=== PATIENT | male | born 1955 | race Caucasian/White ===

== ENCOUNTER 2025-02-07 09:53 | Outpatient (AMB) | payer MEDICARE, SELFPAY ==
--- NOTE | 2025-02-07 10:00 | MHC.PC.OV ---
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 [facility] Medical records have been requested and have not received. Yoga Instructor Required: No Antisubmarine Weapons Officer: Present Accompanied by: Brother Allergies Penicillins Allergy (Intermediate, Verified 02/07/25 10:10) Hives Medication List - Last Reconciled 02/07/25 by Wm Newell MD ammonium lactate 12% 1 appl topical DAILY collagenase clostridium histo. (Santyl) 1 appl topical DAILY furosemide (Lasix) 20 mg PO DAILY omeprazole 20 mg PO DAILY Tobacco use date assessed: 02/07/25 Fall risk assessment: No Falls in past year Last assessed Fall Risk: 02/07/25 Dental Screening Dental Screen Date: 02/07/25 Did you have a dental visit in the last 12 months?: Yes Did you have a dental problem in the last 6 months where you did not have access to dental care?: No Was dental information given to patient?: Patient has dentist HPI HPI Comments History of Present Illness Details The patient is a 70-year-old male with PMH of wound on left lower extremity, presenting for a new patient visit to establish primary care. He has not seen a physician since 2019 or 2020. His brother, Hermelindo, accompanies him and is actively involved in his medical care, including medication management. The patient has a history of a large ulcerated wound on his left leg, for which he has been receiving treatment at a wound care center. The wound is now mostly healed, and he wears compression socks. He reports persistent swelling in his ankles, though his legs are not as bad, for which he takes furosemide 20 mg daily. The patient has a long-standing history of acid reflux, which bothers him daily with symptoms of gas and frequent burping. He takes omeprazole 20 mg daily, which was prescribed in 2020. He has a history of varicose veins and had one vein repaired in the past. His blood pressure was noted to be elevated at 140 systolic during the visit. He reports taking aspirin and Tylenol for unspecified pain. The patient has never smoked. [facility] Surgical History (Updated 02/07/25 @ 10:17 by THEA Meehan) History of tonsillectomy History of hernia surgery Social History (Updated 02/07/25 @ 10:01 by THEA Meehan) Housing: House Alcohol intake: never Patient Tobacco Use Status: Never used Tobacco e-Cigarette/Vaping Use: Never Used Second Hand Smoke Exposure: No service: No Current occupational status: retired Cognitive needs: No Hearing needs: No Vision needs: Yes (Glass) Questionnaire PHQ-9 Over the last 2 weeks, how often have you been bothered by any of the following problems? 1. Little interest or pleasure in doing things: not at all 2. Feeling down, depressed, or hopeless: not at all 3. Trouble falling or staying asleep, or sleeping too much: not at all 4. Feeling tired or having little energy: not at all 5. Poor appetite or overeating: not at all 6. Feeling bad about yourself - or that you are a failure or have let yourself or your family down: not at all 7. Trouble concentrating on things, such as reading the newspaper or watching television: not at all 8. Moving or speaking so slowly that other people could have noticed. Or the opposite - being so fidgety or restless that you have been moving around a lot more than usual: not at all 9. Thoughts that you would be better off or of hurting yourself in some way: not at all Total score: 0 Depression Screening Interpretation: Negative Depression Screening Done: Yes Source: Developed by Drs. Ramin Haney, Kavita Delgadillo, Chriss Santos and colleagues, with an educational kyaw from [employer]. Thrive Questionnaire Date Thrive assessed: 02/05/25 I am a: Patient What is your living situation today?: I have a steady place to live Within the past 12 months, did the food you bought not last and you didn't have the money to get more?: Never true Within the past 12 months, did you worry whether your food would run out before you got money to buy more?: Never true Do you have trouble paying for medicines?: No Do you have trouble getting transportation to medical appointments?: No Do you have trouble paying your heating and electricity bill?: No Do you have trouble taking care of your child, family member or friend?: No Do you have trouble with day-to-day activities such as bathing, preparing meals, shopping, managing finances, etc.?: I choose not to answer this question Are you currently unemployed and looking for a job?: No Are you interested in more education?: No Please select the resources that you would like help with: None Currently or been in a relationship where the following occur: No concerns reported THRIVE Score: 0 AUDIT C Alcohol Use Questionnaire (AUDIT-C) 1. How often do you have a drink containing alcohol?: Never 3. How often do you have six or more drinks on one occasion?: Never Total Score: 0 JENNIFER-7 AMB Questionnaire JENNIFER-7 Date JENNIFER - 7 assessed: 02/07/25 Feeling nervous, anxious, or on edge: 0 = Not at all Not being able to stop or control worryin = Not at all Worrying too much about different things: 0 = Not at all Trouble relaxin = Not at all Being so restless that it is hard to sit still: 0 = Not at all Becoming easily annoyed or irritable: 1 = Several days Feeling afraid as if something awful might happen: 0 = Not at all Total JENNIFER-7 score (0-4 normal; 5-9 mild; 10-14 moderate; 15-21 severe): 1 Source: Developed by Drs. Ramin Haney, Kavita Delgadillo, Chriss Santos and colleagues, with an educational kyaw from [employer]. Review of Systems Const Details: Positives besides what was mentioned in HPI are in BOLD Constitutional: No Weight Change, No Fever, No Chills, No Night Sweats, No Fatigue, No Malaise ENT/Mouth: No Hearing Changes, No Ear Pain, No Nasal Congestion, No Sinus Pain, No Hoarseness, No sore throat, No Rhinorrhea, No Swallowing Difficulty Eyes: No Eye Pain, No Swelling, No Redness, No Foreign Body, No Discharge, No Vision Changes Cardiovascular: No Chest Pain, No SOB, No PND, No Dyspnea on Exertion, No Orthopnea, No Claudication, No Edema, No Palpitations Respiratory: No Cough, No Sputum, No Wheezing, No Smoke Exposure, No Dyspnea Gastrointestinal: No Nausea, No Vomiting, No Diarrhea, No Constipation, No Pain, No Heartburn, No Anorexia, No Dysphagia, No Hematochezia, No Melena, No Flatulence, No Jaundice Genitourinary: No Dysmenorrhea, No DUB, No Dyspareunia, No Dysuria, No Urinary Frequency, No Hematuria, No Urinary Incontinence, No Urgency, No Flank Pain, No Urinary Flow Changes, No Hesitancy Musculoskeletal: No Arthralgias, No Myalgias, No Joint Swelling, No Joint Stiffness, No Back Pain, No Neck Pain, No Injury History Skin: No Skin Lesions, No Pruritis, No Hair Changes, No Breast/Skin Changes, No Nipple Discharge Neuro: No Weakness, No Numbness, No Paresthesias, No Loss of Consciousness, No Syncope, No Dizziness, No Headache, No Coordination Changes, No Recent Falls Psych: No Anxiety/Panic, No Depression, No Insomnia, No Personality Changes, No Delusions, No Rumination, No SI/HI/AH/VH, No Social Issues, No Memory Changes, No Violence/Abuse Hx., No Eating Concerns Heme/Lymph: No Bruising, No Bleeding, No Transfusions History, No Lymphadenopathy Endocrine: No Polyuria, No Polydipsia, No Temperature Intolerance Physical exam (Primary Care) Vital Signs: Last Vital Signs Temp 96.9 F 02/07/25 10:02 Pulse 86 02/07/25 10:02 BP 140/66 H 02/07/25 10:02 Pulse Ox 96 02/07/25 10:02 Oxygen Delivery Method Room Air 02/07/25 10:02 BMI result Body Mass Index 24.4 Tobacco/Smoking Status: Tobacco use Status Tobacco use date assessed 02/07/25 02/07/25 10:19 Patient Tobacco Use Status Never used Tobacco 02/07/25 10:19 e-Cigarette/Vaping Use Never Used 02/07/25 10:19 PHQ-9: PHQ-9 Score PHQ-9: Total score 0 02/07/25 10:32 Depression Screening Interpretation: Negative Thrive Assessment: Date of Thrive Assessment Date Thrive assessed 02/05/25 02/07/25 10:19 Currently or been in a relationship where the following occur: No concerns reported Const Other: Pertinent findings are in BOLD GENERAL APPEARANCE NAD, activity normal for age, well developed/ well nourished, no cyanosis, pallor, or diaphoresis. EYES lids/conjunctiva normal. EARS/NOSE/THROAT Mucous membranes moist, nares normal, lips/teeth normal uvula midline without oral pharyngeal erythema, exudate or swelling TMs normal bilaterally. No lymphangitis/lymphedema. HEAD/NECK normocephalic atraumatic, no facial trauma, neck is supple. RESPIRATORY respiratory effort normal, speaks in full sentences, no tripod position, no accessory muscle use. Lungs clear to auscultation without rhonchi, wheezes, rales CARDIAC Regular rate and rhythm, no edema. ABDOMINAL Soft, ND/NT. No evidence of fluid wave. No pulsatile masses on exam, rebound tenderness, Kothari sign or pain over Mcburney's point. MUSCLES/EXTREMITIES No abnormal range of motion, no swelling. SKIN Warm, pink and dry. No rashes, dermatoses, petechiae or lesions. Left lower extremity wrapped in gauze. NEUROLOGICAL Speech is clear and appropriate. Normal level of consciousness. Gait and coordination are normal. 5/5 strength in all extremities. PSYCH Normal mood and affect. Judgement/competence is appropriate Immunizations pneumoc 20-payton conj-dip cr(PF) 0.5 mL IM syringe Performing Provider: Wm Newell MD Performing Location: [facility] [place] [facility] Administered by: Lou Servin CMA on 02/07/25 10:56 Dose Route Admin Location Dispensed Lot Number Expiration Date FORMERLY NAMED [facility] Health Counselor 0.5 mL IM Right Deltoid 0.5 mL [id number] 11/29/26 [employer] Total Dispensed Waste 0.5 mL 0 % VIS Given Date VIS Provided VIS Publication Date 02/07/25 Single Vaccine 24 Eligibility Eligibility Date Funding Source Not [facility] Eligible 02/07/25 Private Boostrix Tdap 2.5 Lf unit-8 mcg-5 Lf/0.5 mL intramuscular syringe Performing Provider: Wm Newell MD Performing Location: [facility] [place] [facility] Administered by: Lou Servin CMA on 02/07/25 10:56 Dose Route Admin Location Dispensed Lot Number Expiration Date FORMERLY NAMED [facility] Health Counselor 0.5 mL IM Right Deltoid 0.5 mL [id number] 06/25/27 54386-775-16 Dez[employer] Total Dispensed Waste 0.5 mL 0 % VIS Given Date VIS Provided VIS Publication Date 02/07/25 Single Vaccine 20 Eligibility Eligibility Date Funding Source Not [facility] Eligible 02/07/25 Private Coding Level of Care Code New Pt Level 4 (57077) New Pt Prev Care >65yr (87875) Diagnoses Healthcare maintenance Z00.00 Gastroesophageal reflux disease, unspecified whether esophagitis present K21.9 Esophagitis presence: esophagitis presence not specified Ulcer of left lower extremity, unspecified ulcer stage L97.929 Laterality: left Non-pressure ulcer stage: unspecified non-pressure ulcer stage Primary hypertension I10 Hypertension type: primary hypertension Peripheral edema R60.9 Generalized pain R52 Time Spent (min) 60 Assessment & Plan Assessment & Plan (1) Healthcare maintenance: Code(s): Z00.00 - Encounter for general adult medical examination without abnormal findings Category: Medical Plan: CBC, CMP, Lipid panel, A1C, TSH w T4, vit D. Shingles 2 doses when >50 yo COVID: two doses. Completed in the past. Pneumococcal: >50 yo. 18-49 with CKD, lung disease, weakened immune system, Heart disease, DM, cochlear implant. Flu vaccine: Done recently. Tdap: every 10 years. Ordered today. Colonoscopy: 45-75. Cologuard. AAA: 65 -75. Never smoked. CT lun - 80. Never smoked. PSA: 50 -70 every two years. Ordered. HIV: Ordered. HCV: Ordered. (2) GERD (gastroesophageal reflux disease): Code(s): K21.9 - Gastro-esophageal reflux disease without esophagitis Category: Medical Qualifiers: Esophagitis presence: esophagitis presence not specified Qualified Code(s): K21.9 - Gastro-esophageal reflux disease without esophagitis Plan: - The patient has a long-standing history of symptomatic acid reflux despite taking omeprazole 20 mg. - Plan is to increase omeprazole to 40 mg once daily, taken in the morning one hour before the first meal. - A referral to Gastroenterology will be placed for further evaluation, including a possible endoscopy, due to the chronic nature of his symptoms. - The patient was advised to try eliminating dairy products to assess for improvement in symptoms. - Advised to avoid aspirin and ibuprofen due to risk of exacerbating reflux. (3) Leg ulcer: Code(s): L97.909 - Non-pressure chronic ulcer of unspecified part of unspecified lower leg with unspecified severity Category: Medical Qualifiers: Laterality: left Non-pressure ulcer stage: unspecified non-pressure ulcer stage Qualified Code(s): L97.929 - Non-pressure chronic ulcer of unspecified part of left lower leg with unspecified severity Plan: - The patient is actively being followed by a wound care center for a left leg ulcer that is now mostly healed. - I was not able to check his wound as it was wrapped in gauze. - Will continue care with the wound center. (4) HTN (hypertension): Code(s): I10 - Essential (primary) hypertension Category: Medical Qualifiers: Hypertension type: primary hypertension Qualified Code(s): I10 - Essential (primary) hypertension Plan: - Blood pressure was elevated at 140 systolic in the office. - Will initiate amlodipine 5 mg daily to be taken at night. (5) Peripheral edema: Code(s): R60.9 - Edema, unspecified Category: Medical Plan: - Patient has persistent ankle swelling. - Will continue furosemide 20 mg, with instruction to take it when swelling is pronounced rather than on a strict daily schedule. (6) Generalized pain: Code(s): R52 - Pain, unspecified Category: Medical Plan: - The patient takes aspirin for unspecified pain. - Recommended discontinuing aspirin due to bleeding risk and acid reflux. - Advised to use Tylenol for pain. Orders: Orders Complete Blood Count no Diff Today Z00.00 - Encounter for general adult medical examination without abnormal findings TDaP Immunization Today Z23 - Encounter for immunization Vitamin D 25-OH Total Today Z00.00 - Encounter for general adult medical examination without abnormal findings Comprehensive Met. Panel Today Z00.00 - Encounter for general adult medical examination without abnormal findings Hemoglobin A1c Today Z00.00 - Encounter for general adult medical examination without abnormal findings Lipid Panel Today Z00.00 - Encounter for general adult medical examination without abnormal findings TSH reflex Free T4 Today Z00.00 - Encounter for general adult medical examination without abnormal findings HIV Ab/Ag Today Z00.00 - Encounter for general adult medical examination without abnormal findings Hepatitis C Antibody Reflex Today Z00.00 - Encounter for general adult medical examination without abnormal findings Prostate Specific Antigen Today Z00.00 - Encounter for general adult medical examination without abnormal findings Pneumococcal 20 Immunization Today Z23 - Encounter for immunization Referrals Gastroenterology Referral K21.9 - Gastro-esophageal reflux disease without esophagitis Cologuard Test Z12.11 - Encounter for screening for malignant neoplasm of colon, Z12.12 - Encounter for screening for malignant neoplasm of rectum Medications: New furosemide (Lasix) 20 mg PO DAILY 90 tabs 3RF amlodipine 5 mg PO DAILY 60 tabs 3RF omeprazole 20 mg PO DAILY 30 tabs 3RF omeprazole 40 mg (2 x 20 mg) PO DAILY 30 tabs 3RF acetaminophen (Tylenol) 325 mg PO QID PRN 60 tabs 3RF pain
[2025-02-07 10:02] VITALS: BP 140/66; PULSE 86; TEMP 36.1; O2SAT 96; BMI 24.4
--- OUTSIDE RECORDS SUMMARY | 2025-02-07 11:21 | XMS_ITS | Clinical Summary ---
Author Organization [facility] Address [address] [place] [phone] Phone Care Team Providers Care Oyster Buyer Name Role Phone Physician, Pcp Unknown Primary Care Provider Adrienne vailable Allergies Active Allergy Reactions Criticality Noted Date Comments Penicillins Rash 09/27/2013 Medications mupirocin (BACTROBAN) 2 % ointment Apply to each wound twice daily for 5-days. 22 g 5 Active furosemide (LASIX) 20 mg tablet Take 1 tablet (20 mg total) by mouth 1 (one) time each day. 1 Active omeprazole (PriLOSEC) [address] capsule Take 1 capsule (20 mg total) by mouth 1 (one) time each day. 1 Active loratadine (CLARITIN) 10 mg tablet Take 1 tablet (10 mg total) by mouth 1 (one) time each day. 1 Active horse chestnut seed extract 250 mg capsule Take 250 mg by mouth 1 (one) time each day. Active horse chestnut 300 mg capsule Take 300 mg by mouth 1 (one) time each day. Active ammonium lactate (LAC-HYDRIN) 12 % lotionIndicatio ns:Lymphedema Apply topically if needed for dry skin. 400 g 2 5 03/06/20 25 Active Active Problems Problem Noted Date Diagnosed Date Chronic venous hypertension (idiopathic) with other complications of right lower extremity 12/27/2024 Lymphedema 12/13/2024 Chronic venous hypertension (idiopathic) with ulcer of left lower extremity (CODE) (CMS/[facility] V24, CMS/[facility] V28) 11/08/2024 Non-pressure chronic ulcer o f other part of 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 (CMS/HCC V24, CMS/HCC V28) 11/08/2024 Encounters Date Type Department Care Team Description 01/31/2025 11:00 AM EST Office Visit [facility] [address] [place] [phone] Diane Gates MD Chronic venous hypertension (idiopathic) with ulcer of left lower extremity (CODE) (CMS/HCC V24, CMS/HCC V28) (Primary Dx); Non-pressure chronic ulcer of other part of 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 (CMS/HCC V24, CMS/HCC V28); Lymphedema; Chronic venous hypertension (idiopathic) with other complications of right lower extremity 01/17/2025 11:15 AM EDT Office Visit [facility] [address] [place] [phone] Diane Gates MD Chronic venous hypertension (idiopathic) with ulcer of left lower extremity (CODE) (CMS/HCC V24, CMS/HCC V28) (Primary Dx); Non-pressure chronic ulcer of other part of 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 (CMS/HCC V24, CMS/HCC V28); Lymphedema; Chronic venous hypertension (idiopathic) with other complications of right lower extremity 01/11/2025 Telephone [facility] [address] [place] [phone] Lissa Sanches RN 12/27/2024 10:30 AM EDT Office Visit [facility] [address] [place] [phone] Diane Gates MD Chronic venous hypertension (idiopathic) with ulcer of left lower extremity (CODE) (CMS/HCC V24, CMS/HCC V28) (Primary Dx); Non-pressure chronic ulcer of other part of 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 (CMS/HCC V24, CMS/HCC V28); Lymphedema; Chronic venous hypertension (idiopathic) with other complications of right lower extremity 12/13/2024 11:30 AM EDT Office Visit [facility] [address] [place] [phone] Diane Gates MD Chronic venous hypertension (idiopathic) with ulcer of left lower extremity (CODE) ([facility]/HCC V24, CMS/HCC V28) (Primary Dx); Non-pressure chronic ulcer of other part of 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 (CMS/HCC V24, CMS/HCC V28); Lymphedema 11/22/2024 1:15 PM EDT Office Visit [facility] [address] [place] [phone] Diane Gates MD Chronic venous hypertension (idiopathic) with ulcer of left lower extremity (CODE) (CMS/HCC V24, CMS/HCC V28) (Primary Dx); Non-pressure chronic ulcer of other part of 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 (CMS/HCC V24, CMS/HCC V28); Lymphedema 11/08/2024 12:45 PM EDT Consult [facility] [address] [place] [phone] Diane Gates MD Chronic venous hypertension (idiopathic) with ulcer of left lower extremity (CODE) ([facility]/HCC V24, CMS/HCC V28) (Primary Dx); Non-pressure chronic ulcer of other part of 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 (CMS/[facility] V24, CMS/[facility] V28); Lymphedema from Last 3 Months Surgical History Surgery Date Site/Laterality Comments HERNIA REPAIR Left PROCEDURE: REPAIR INGUINAL HERNIA; COMMENT: 6 months and in 1995 TONSILLECTOMY 1974 PROCEDURE: HISTORICAL TONSILLECTOMY Medical History Medical History Date Comments Leg edema 06/02/2013 DX:Leg edema Family History Medical History Relation Name Comments Other: Other Father 2001 c ancer Other: Other Mother Relation Name Status Comments Father Mother Alive Social History Tobacco Use Types Packs/Day Years Used Date Smoking Tobacco: Never Smokeless Tobacco: Never Alcohol Use Standard Drinks/Week Comments No 0 (1 standard drink = 0.6 oz pur e alcohol) Sex and Gender Information Value Date Recorded Sex Assigned at Not on file Legal Sex Male 4:39 PM EST Gender Identity Not on file Sexual Orientation Not on file Obstetrics History Last Filed Vital Signs Vital Sign Reading Time Taken Comments Blood Pressure 134/67 01/31/2025 11:01 AM EST Pulse 67 01/31/2025 11:01 AM EST Temperature 36.8 C (98.3 F) 01/31/2025 11:01 AM EST Respiratory Rate 18 01/31/2025 11:01 AM EST Oxygen Saturation 98% 01/17/2025 11:28 AM EDT Inhaled Oxygen Concentration - - Weight 90.7 kg (200 lb) 10/17/2024 12:51 PM EDT Height 172.7 cm (5' 8 ) 10/17/2024 12:51 PM EDT Body Mass Index 30.41 10/17/2024 12:51 PM EDT Plan of Treatment Upcoming Encounters Date Type Department Care Team (Late st Contact Info) Description 02/14/2025 11:00 AM EST Clinical Support [facility] [address] [place] [phone] 03/17/2025 10:00 AM EST Ancillary Procedure [facility] [address] [facility] [address] [place] [phone] 03/28/2025 4:00 PM EST Office Visit Vascular Surgery - [place] [address] [facility] [address] [place] [phone] Dee Dee Servin PA [address] [facility] [address] [place] [address] Health Maintenance Due Date Last Done Comments Colorectal Cancer Screening: Colonoscopy 1955 Hepatitis A Vaccines (1 of 2 - Risk 2-dose series) 02/03/1976 Pneumococcal Vaccine: 50+ Years (1 of 1 - PCV) 2007 RSV Immunization Adult Patients (1 - Risk 50-74 years 1-dose series) 2007 Hepatitis B Vaccines (1 of 3 - Risk 3-dose series) 2017 Zoster Vaccines (2 of 2) 02/18/2018 12/24/2017 DTaP,Tdap,and Td Vaccines (2 - Td or Tdap) 03/17/2024 03/17/2014 Depression Screening 03/31/2024 Cholesterol Screening (Lipid Panel) 10/17/2024 Falls Risk Assessment 10/17/2024 Hepatitis C Screening 10/17/2024 Medicare Annual Wellness Visit 10/17/2024 Social Influencers of Health Screening 10/17/2024 Influenza Vaccine Completed 01/12/2025, , 01/08/2023, Additional history exists COVID-19 Vaccine Completed 01/26/2025, , 01/15/2023, Additional history exists HIB Vaccines Aged Out No longer eligi ble based on patient's age to complete this topic HPV Vaccines Aged Out No longer eligi ble based on patient's age to complete this topic IPV Vaccines Aged Out No longer eligi ble based on patient's age to complete this topic MMR Vaccines Aged Out No longer eligi ble based on patient's age to complete this topic Meningococcal ACWY Vaccine Aged Out N o longer eligible based on patient's age to complete this topic Meningococcal B Vaccine Aged Out No l onger eligible based on patient's age to complete this topic RSV Immunization Patients Under 20 months Aged Out No longer eligible based on patient's age to complete this topic Varicella Vaccines Aged Out No longer eligible based on patient's age to complete this topic Goals Goal Patient Goal Type Associated Problems Recent Progress Patient-Stated? Author Decrease Wound Volume by X% by date (in notes) Care Plan Impaired Tissue Improving(05/2024 11:23 AM EST) Toya Henderson RN Patient and Caregiver Understand Wound Care Education Care Plan Impaired Tissue On track( 11:23 AM EST) Toya Henderson RN Wound volume breakdown reduced by X% by week 4 Care Plan Impaired Tissue No Toya Farrell RN Wound volume breakdown reduced by X% by week 8 Care Plan Impaired Tissue No Toya Farrell RN Wound volume breakdown reduced by X% by week 12 Care Plan Impaired Tissue No Toya Farrell RN Quit using tobacco (cigarettes, smokeless, etc) Care Plan Education needed on impact of smoking on wound Toya Henderson RN Reduce tobacco use (cigarettes, smokeless, etc) Care Plan Education needed on impact of smoking on wound No Toya Farrell RN Decrease Wound Volume by X% by date (in notes) Care Plan Education needed on impact of smoking on wound No Toya Farrell RN Patient and Caregiver Understand Wound Care Education Care Plan Education needed related to ulceration/compr omised skin integrity. 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 (CMS/HCC V24, CMS/HCC V28) Lymphedema from Last 3 Months Results * Debridement Venous Ulcer Left;Medial;Lower Leg (11/22/2024 1:15 PM EDT) Diane Vasqeuz MD - 11/22/2024 1:15 PM EDT Diane Gates MD 11/22/2024 3:31 PM Debridement Venous Ulcer Left;Medial;Lower Leg Performed by: Diane Gates MD Authorized by: Diane Gates MD Associated wounds: Wound Venous Ulcer 11/08/20 Leg Left;Medial;Lower Consent: Consent obtained: Verbal Consent given by: Patient Risks discussed: Yes Time out: Immediately prior to the procedure a time out was called Time out performed at: 11/22/2024 2:28 PM Debridement Details: Performed by: Physician Type: selective Pain control: Lidocaine 5% Pain control administration: topical anesthesia Severity of Tissue Pre Debridement: Fat layer exposed Severity of Tissue Post Debridement: Fat layer exposed Time taken: 11/22/2024 1:44 PM Length (cm): 6.5 (Cluster of 2) Width (cm): 5.7 Depth (cm): 0.1 Area (cm^2): 37.05 Time taken: 11/22/2024 1:45 PM Length (cm): 6.5 Width (cm): 5.7 Depth (cm): 0.1 Percent Debrided (%): 50 Surface Area (cm^2): 37.05 Area Debrided (cm^2): 18.52 Volume (cm^3): 3.71 Devitalized tissue debrided: fibrin and slough Devitalized tissue debrided comment: Devitalized skin Instrument: Blade and forceps Amount of bleeding: small Hemostasis obtained with: Pressure Procedural pain: 0 Post-procedural pain: 0 Response to treatment: Procedure was tolerated well us Diane Gates MD IN CLINIC/BEDSIDE ORDERAB LES Final Result * Debridement Venous Ulcer Left;Lower;Lateral Leg (11/08/2024 12:45 PM EDT) Diane Vasquez MD - 11/08/2024 12:45 PM EDT Diane Gates MD 11/08/2024 4:22 PM Debridement Venous Ulcer Left;Lower;Lateral Leg Performed by: Diane Gates MD Authorized by: Diane Gates MD Associated wounds: Wound Venous Ulcer 11/08/20 Leg Left;Lower;Lateral Consent: Consent obtained: Verbal Consent given by: Patient Risks discussed: Yes Time out: Immediately prior to the procedure a time out was called Time out performed at: 11/08/2024 1:56 PM Debridement Details: Performed by: Physician Type: selective Pain control: Lidocaine 4% Pain control administration: topical anesthesia Severity of Tissue Pre Debridement: Fat layer exposed Severity of Tissue Post Debridement: Fat layer exposed Time taken: 11/08/2024 1:29 PM Length (cm): 11.1 Width (cm): 6.4 Depth (cm): 0.1 Area (cm^2): 71.04 Time taken: 11/08/2024 1:30 PM Length (cm): 11.1 Width (cm): 6.4 Depth (cm): 0.1 Percent Debrided (%): 80 Surface Area (cm^2): 71.04 Area Debrided (cm^2): 56.83 Volume (cm^3): 7.1 Devitalized tissue debrided: fibrin and slough Devitalized tissue debrided comment: Devitalized skin Instrument: Blade and forceps Amount of bleeding: small Hemostasis obtained with: Pressure Procedural pain: 0 Post-procedural pain: 0 Response to treatment: Procedure was tolerated well us Diane Gates MD IN CLINIC/BEDSIDE ORDERAB LES Final Result from Last 3 Months Additional Health Concerns Active Problems Noted Date Diagnosed Date Impaired Tissue 11/08/2024 Education needed on impact of smoking on wound 0 11/08/2024 Education needed related to ulceration/compromised skin integrity. 11/08/2024 Insurance MEDICARE MEDICAID - [place] Care Teams Oyster Buyer Relationship Specialty Start Date End Date Physician, Pcp Unknown PCP - General 10/17/24
--- OUTSIDE RECORDS SUMMARY | 2025-02-07 11:21 | XMS_ITS ---
Care Plan Created on: February 07, 2025 Jaxson Casper : 1955 Sex: Male Author Organization [facility] Address [address] [place] [phone] Phone Care Team Providers Care Patient Financial Specialist Name Role Phone Physician, Pcp Unknown Primary Care Provider Adrienne vailable Active Problems Problem Noted Date Diagnosed Date Chronic venous hypertension (idiopathic) with other complications of right lower extremity 12/27/2024 Lymphedema 12/13/2024 Chronic venous hypertension (idiopathic) with ulcer of left lower extremity (CODE) ([facility] V24, [facility] V28) 11/08/2024 Non-pressure chronic ulcer o f other part of 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 ([facility] V24, [facility] V28) 11/08/2024 Additional Health Concerns Active Problems Noted Date Diagnosed Date Impaired Tissue 11/08/2024 Education needed on impact of smoking on wound 0 11/08/2024 Education needed related to ulceration/compromised skin integrity. 11/08/2024 Goals Goal Patient Goal Type Associated Problems Recent Progress Patient-Stated? Author Decrease Wound Volume by X% by date (in notes) Care Plan Impaired Tissue Improving(05/2024 11:23 AM EST) No Toya Farrell RN Patient and Caregiver [...] smoking on wound No Toya Farrell RN Reduce tobacco use (cigarettes, smokeless, etc) [...] omised skin integrity. No Toya Farrell RN Interventions Care Plan Interventions Intervention Entry Date Outcome Provide caregiver with wound care procedure information 11/08/2024 Educate caregiver on proper wound care procedures 11/08/2024 Give provider list of wound care supplies 11/08/2024 Refill wound care supplies 11/08/2024 Send Wound Care Supplies 11/08/2024 Give provider list of wound care supplies 11/08/2024 Refill wound care supplies 11/08/2024 Send Wound Care Supplies 11/08/2024 Provide caregiver with wound care procedure information 11/08/2024 Educate caregiver on proper wound care procedures 11/08/2024 Document patient eligibility for HBO 11/08/2024 Assess patient for HBO treatment 11/08/2024 Record wound depth 11/08/2024 Record total wound area 11/08/2024 Measure wound progress 11/08/2024 Create an action plan identifying patient strengths and supports 11/08/2024 Establish quit date with patient 11/08/2024 Discuss prior cessation attempts 11/08/2024 Discuss preferred method of cessation and plan 11/08/2024 Discuss barriers to smoking cessation 11/08/2024 Discuss smoking status with patient 11/08/2024 Create an action plan identifying patient strengths and supports 11/08/2024 Establish quit date with patient 11/08/2024 Discuss prior cessation attempts 11/08/2024 Discuss preferred method of cessation and plan 11/08/2024 Discuss barriers to smoking cessation 11/08/2024 Discuss smoking status with patient 11/08/2024 Provide caregiver with wound care procedure information 11/08/2024 Educate caregiver on proper wound care procedures 11/08/2024 Document patient eligibility for HBO 11/08/2024 Assess patient for HBO treatment 11/08/2024 Record wound depth 11/08/2024 Record total wound area 11/08/2024 Measure wound progress 11/08/2024 Provide caregiver with wound care procedure information 11/08/2024 Educate caregiver on proper wound care procedures 11/08/2024 Document patient eligibility for HBO 11/08/2024 Assess patient for HBO treatment 11/08/2024 Record wound depth 11/08/2024 Record total wound area 11/08/2024 Measure wound progress 11/08/2024 Provide caregiver with wound care procedure information 11/08/2024 Educate caregiver on proper wound care procedures 11/08/2024 Document patient eligibility for HBO 11/08/2024 Assess patient for HBO treatment 11/08/2024 Record wound depth 11/08/2024 Record total wound area 11/08/2024 Measure wound progress 11/08/2024 Provide caregiver with wound care procedure information 11/08/2024 Educate caregiver on proper wound care procedures 11/08/2024 Give provider list of wound care supplies 11/08/2024 Refill wound care supplies 11/08/2024 Give provider list of wound care supplies 11/08/2024 Refill wound care supplies 11/08/2024 Provide caregiver with wound care procedure information 11/08/2024 Educate caregiver on proper wound care procedures 11/08/2024 Record wound depth 11/08/2024 Record total wound area 11/08/2024 Measure wound progress 11/08/2024 Related Goals and Interventions Goal Associated Intervent ions Decrease Wound Volume by X% by date (in notes) Give provider list of wound care supplie s; Refill wound care supplies; Provide caregiver with wound care procedure information; Educate caregiver on proper wound care procedures; Record wound depth; Record total wound area; Measure wound progress Patient and Caregiver Unders tand Wound Care Education Provide caregiver with wound care proced ure information; Educate caregiver on proper wound care procedures; Give provider list of wound care supplies; Refill wound care supplies Wound volume breakdown reduc ed by X% by week 4 Provide caregiver with wound care proced ure information; Educate caregiver on proper wound care procedures; Document patient eligibility for HBO; Assess patient for HBO treatment; Record wound depth; Record total wound area; Measure wound progress Wound volume breakdown reduc ed by X% by week 8 Provide caregiver with wound care proced ure information; Educate caregiver on proper wound care procedures; Document patient eligibility for HBO; Assess patient for HBO treatment; Record wound depth; Record total wound area; Measure wound progress Wound volume breakdown reduc ed by X% by week 12 Provide caregiver with wound care proced ure information; Educate caregiver on proper wound care procedures; Document patient eligibility for HBO; Assess patient for HBO treatment; Record wound depth; Record total wound area; Measure wound progress Quit using tobacco (cigarett es, smokeless, etc) Create an action plan identifying patien t strengths and supports; Establish quit date with patient; Discuss prior cessation attempts; Discuss preferred method of cessation and plan; Discuss barriers to smoking cessation; Discuss smoking status with patient Reduce tobacco use (cigarett es, smokeless, etc) Create an action plan identifying patien t strengths and supports; Establish quit date with patient; Discuss prior cessation attempts; Discuss preferred method of cessation and plan; Discuss barriers to smoking cessation; Discuss smoking status with patient Decrease Wound Volume by X% by date (in notes) Give provider list of wound care supplie s; Refill wound care supplies; Send Wound Care Supplies; Provide caregiver with wound care procedure information; Educate caregiver on proper wound care procedures; Document patient eligibility for HBO; Assess patient for HBO treatment; Record wound depth; Record total wound area; Measure wound progress Patient and Caregiver Unders tand Wound Care Education Provide caregiver with wound care proced ure information; Educate caregiver on proper wound care procedures; Give provider list of wound care supplies; Refill wound care supplies; Send Wound Care Supplies
--- OUTSIDE RECORDS SUMMARY | 2025-02-07 11:21 | XMS_ITS ---
Author Name [facility] Care Team Organization Name Specialty Phone Email Start Date End Da inna [facility] JENNIFER SHEA Primary Care 02/05/2022 11/17/19 24
== END 2025-02-07 11:06 | disposition home or self-care (01) ==
PROVIDERS: PCP Internal Medicine; Visit Provider Internal Medicine
DX: K21.9 Gastro-esophageal reflux disease without esophagitis (principal); L97.929 Non-pressure chronic ulcer of unspecified part of left lower leg with unspecified severity; I10 Essential (primary) hypertension; R60.9 Edema, unspecified; R52 Pain, unspecified; Z23 Encounter for immunization

== ENCOUNTER → 2025-02-07 09:53 | Outpatient (BNVA) | payer MEDICARE, SELFPAY | PROVIDERS: Visit Provider Internal Medicine | DX: Z00.00 Encounter for general adult medical examination without abnormal findings (principal); K21.9 Gastro-esophageal reflux disease without esophagitis; I10 Essential (primary) hypertension; R60.9 Edema, unspecified; L97.902 Non-pressure chronic ulcer of unspecified part of unspecified lower leg with fat layer exposed; Z23 Encounter for immunization | CPT/HCPCS: 90471; 90677; 90715; 99202 ==